=== PATIENT | male | born 1975 ===

== ENCOUNTER 2017-03-23 22:01 | Inpatient (IN) ==
[2017-03-23] MEDS ORDERED: ONDANSETRON 4 MG/2 ML VIAL IV STA (22:25)
[2017-03-23] MEDS ORDERED: PANTOPRAZOLE 40 MG VIAL IV STA (22:25)
[2017-03-23] MEDS ORDERED: SODIUM CHLORIDE 0.9% 500 ML IV STA (22:25)
[2017-03-23] MEDS ORDERED: PANTOPRAZOLE 40 MG VIAL IV ONE (22:43)
[2017-03-23] MEDS ORDERED: ONDANSETRON 4 MG/2 ML VIAL ONE (22:43)
--- NOTE | 2017-03-23 22:48 | Emergency Department Note ---
Michaela Torres Emily, am scribing for, and in the presence of, Eriberto Simon MD 22: 34. Aurora Torres Charles R, MD, personally performed the services described in this documentation, ascribed by Malathi Jennings in my presence, and it is both accurate and complete . Arrival - Arrival Chief Complaint: Abdominal / Flank Pain Stated Complaint: Abdominal pain ED Nursing Triage Note: Patient is transfer from [facility] ER for a mechanical ileus. Patient has a hx of cholecystectomy and appendectomy. Patient states that he has a biliary tube. Patient received GI cocktail x1, 4mg zofran and 6mg morphine for pain. Patient reports slight abd pain upon triage. Mode of Arrival: Stretcher Limitations: No Limitations Source: Patient - History of Present Illness HPI Narrative: Pt is a 42 y/o male who was transferred from [facility] ER for further evaluation of chronic abdomen pain, in which he has a mechanical ileus. Pt has a hx of cholecystectomy and appendectomy. Pt has a biliary tube and received GI cocktail x1, 4mg zofran and 6mg morphine for pain at [place]. Pt reports slight , non radiating abdomen pain but is staying still because movement makes pain worse. Pt denies fevers, hematuria, or dysuria. He notes that urine output is nml but chronic constipation. PMHx of cryptogenic cirrhosis. Onset (ago): day(s) Consistency: constant Severity: moderate Severity scale (1-10): 5 Quality: aching Allergies/Adverse Reactions: Allergies Allergy/AdvReac Type Severity Reaction Status Date / Time No Known Allergies Allergy Verified 03/29/16 21:54 Home Medications: Home Medications Medication Instructions Recorded Confirmed Type Eletriptan HBr [Relpax] 40 mg PO DAILY 08/10/16 08/31/16 History ALPRAZolam [Xanax] 0.5 mg PO BID PRN #0 tablet 08/17/16 08/31/16 Rx Citalopram [CeleXA] 20 mg PO DAILY tablet 08/17/16 08/31/16 Rx Topiramate [Topamax] 50 mg PO BEDTIME tablet 08/17/16 08/31/16 Rx Oxycodone HCl 5 mg PO TID 08/31/16 08/31/16 History Levofloxacin Tab [Levaquin Tab] 500 mg PO DAILY #14 tablet 09/05/16 Rx Ciprofloxacin Tab [Cipro Tab] 500 mg PO Q12HR 10 Days 03/12/17 Rx Dicyclomine Cap/Tab [Bentyl 20 mg PO QID PRN #20 tablet 03/12/17 Rx Cap/Tab] Ondansetron [Ondansetron Odt] 8 mg PO Q4H PRN #10 tab.rapdis 03/12/17 Rx metroNIDAZOLE TAB [Flagyl Tab] 250 mg PO TID 10 Days 03/12/17 Rx Review of System - Review of System 12 point system: reviewed and no additional remarkable complaints except as stated - Review of System Constitutional: Absent: chills, fever Respiratory: Absent: respiratory distress Cardiovascular: Absent: chest pain Gastrointestinal: Present: abdominal pain (non radiating; worse with movement), constipation. Absent: nausea, vomiting, diarrhea Genitourinary male: Absent: dysuria, hematuria Musculoskeletal: Absent: arm pain, back pain, leg pain, neck pain Skin: Absent: rash Neurological: Absent: headache Psychiatric: Absent: anxiety Medical,Surgical,& Family Hx - Medical History Psychological: History of: Anxiety Disorders Neurology: History of: Migraine (sees DR [facility] [place]) Endocrine: No history of: Diabetes Mellitus (NIDDM) Respiratory: No history of: Obstructive Sleep Apnea Genitourinary: No history of: Kidney Stones Gastrointestinal: History of: GERD, Hemorrhoids (See/treated by Dr Valdovinos in January 2016 for rectal bleeding/hemorrhoids), Liver Problems (cryptogenic cirrhosis) Musculoskeletal: Comment Only: Musculoskeletal Problems (joint pain) - Surgical History Cardiac Surgeries: Patient Denies: Cardiac Catheterization Thoracic Surgeries: Patient denies;: Organ Transplant, Lobectomy Neurologic Surgeries: Patient denies: Neurologic Surgery HEENT Surgeries: Patient denies: Tonsilectomy & Adenoidectomy Abdominal Surgeries: Surgical HX of: Abdominal Surgery, Appendectomy, Cholecystectomy (with biliary stent placement), Colonoscopy, EGD Reproductive Surgeries: Patient denies;: Genitourinary Surgery Orthopedic Surgeries: Surgical HX of;: Orthopedic Surgery (knee scope done on each knee.) - Family History Family History: Reports;: Family Cancer (mom- breast CA), Family Diabetes ( BROTHER), Family Heart Disease, Family Hypertension (BROTHER), Family Stroke Denies;: Family Psychiatric Problems - Social History Smoking Status: Current some day smoker Frequency of Alcohol Use: Occasionally Type of Drug Use: None Functional capacity: independent ambulation Exam Vital Signs: Vital Signs Temperature 98.7 F 03/23/17 22:01 Pulse Rate 92 H 03/23/17 22:01 Respiratory Rate 20 03/23/17 22:01 Blood Pressure 122/54 03/23/17 22:01 O2 Sat by Pulse Oximetry 97 03/23/17 22:01 - General General appearance: alert, in no apparent distress, obese - Head Head exam: Present: atraumatic, normocephalic - Eye Eye exam: Present: PERRL, EOMI - ENT ENT exam: Present: mucous membranes moist. Absent: mucous membranes dry - Neck Neck exam: Present: full ROM. Absent: tenderness - Chest Chest inspection: Present: symmetric chest wall rise. Absent: tenderness - Respiratory Respiratory exam: Present: normal lung sounds bilaterally. Absent: respiratory distress - Cardiovascular Cardiovascular exam: Present: regular rate, normal rhythm, normal heart sounds - Abdominal Exam Abdominal exam: Present: soft, tenderness (generalized and suprapubic), normal bowel sounds. Absent: distention, guarding, rebound - Extremities Exam Extremities exam: Present: full ROM, pedal edema (+1). Absent: tenderness - Neurological Exam Neurological exam: Present: alert, oriented X3, CN II-XII intact. Absent: motor sensory deficit - Psychiatric Psychiatric exam: Present: normal affect, normal mood - Skin Skin exam: Present: warm, dry Course - Consultations Consultation #1: Hospitalist will admit patient Time: 22:46 Results - Labs Lab Results: I have reviewed the patients labs Labs: All results including labs and x-rays were reviewed from previous facility Disposition Clinical Impression: Gastroenteritis, Gastroparesis, Ileus, History of percutaneous stent Case discussed with: patient Disposition: Still a Patient Condition: Stable Time of Disposition: 22:47
[2017-03-23 23:15] LABS: Basophils % 0.2 % (0.0-0.8); Eosinophils % 0.2 % (0.00-10.9); Hematocrit 40.5 VOL% (42.0-52.0); Hemoglobin 13.8 GM/DL (14.0-18.0); Immature Granulocytes % 0.8 %; Immature Granulocytes Absolute 0.13 #; Lymphocytes # 1.5 10*3/uL (1.4-4.0); Lymphocytes % 9.2 % (21.2-54.2); Mean Corpuscular HGB Conc 34.1 GM/DL (32-36); Mean Corpuscular Hemoglobin 30 PG (27-34); Mean Corpuscular Volume 88.8 FL (87-102); Mean Platelet Volume 11.9 FL (9.6-12.0); Monocytes # 1.9 10*3/uL (0.11-0.8); Monocytes % 11.5 % (1.7-12.7); Neutrophils # 13.1 10*3/uL (1.4-7.4); Neutrophils % 78.1 % (38.7-73.9); Platelet Count 155 T/CUMM (130-400); Red Blood Count 4.56 MC/CUMM (3.8-5.5); Red Cell Distribution Width 13.6 % (9.3-17.3); White Blood Count 16.8 T/CUMM (4-12)
[2017-03-23 23:43] LABS: Alanine Aminotransferase 48 U/L (16-61); Albumin 3.3 G/DL (3.4-5.0); Alkaline Phosphatase 177 U/L (45-117); Amylase 18 U/L (25-115); Aspartate Amino Transferase 23 U/L (0-37); Blood Urea Nitrogen 15 MG/DL (7-18); Calcium 8.5 MG/DL (8.5-10.1); Glucose 90 MG/DL (74-106); Magnesium 2.4 MG/DL (1.8-2.4); Potassium 3.7 MMOL/L (3.5-5.1); Sodium 136 MMOL/L (136-145); Total Protein 7.3 G/DL (6.4-8.3); Troponin I Only < 0.015 NG/ML (0.00-0.045)
--- NOTE | 2017-03-24 00:10 | Hospitalist History & Physical ---
Assessment and Plan (1) History of biliary stent insertion Status: Acute Current Visit: Yes (2) Abdominal pain Status: Acute Current Visit: No Qualifiers: Abdominal location: epigastric Qualified Code(s): R10.13 - Epigastric pain (3) Leukocytosis Status: Acute Current Visit: No (4) Nausea & vomiting Status: Acute Current Visit: No (5) history of autoimmune hepatitis Status: Acute Current Visit: No (6) Gastroenteritis Status: Acute Current Visit: Yes (7) Ileus Status: Acute Assessment and plan: Patient will be admitted to our service. Will follow up on repeat labs tomorrow. We are going to put him on IV Cipro and Flagyl. He will have bowel rest. We will treat his pain with morphine. Provide him with hydration through the night. Recheck a KUB in the morning. See if this ileus resolves. It was not present 2 days ago when he had a CT scan but was there on a KUB done at the [facility] Current Visit: Yes History of Present Illness Chief complaint: Abdominal pain History of present illness: Mr. Plasencia is a 42 year old male with past medical history of cryptogenic cirrhosis who presents to our ER as a transfer from [facility]. Patient's KUB today identified him as having an ileus. Patient reports that his pain started approximately 2 days ago. He started with a burning sensation in his epigastrium. He went to the [facility] and he had a CT scan and they stop some of his medications. He tried to just bear with it at home took an enema with some improvement in symptoms the pain seem like it increased. He returned back to the emergency room and he had a KUB that showed a ileus involving both the small and large bowel. I was consulted to admit the patient through the emergency room. Patient does have a biliary tube that he has had for the past several months. Home Medications Medication Instructions Recorded Confirmed Type Eletriptan HBr [Relpax] 40 mg PO DAILY 08/10/16 08/31/16 History ALPRAZolam [Xanax] 0.5 mg PO BID PRN #0 tablet 08/17/16 08/31/16 Rx Citalopram [CeleXA] 20 mg PO DAILY tablet 08/17/16 08/31/16 Rx Topiramate [Topamax] 50 mg PO BEDTIME tablet 08/17/16 08/31/16 Rx Oxycodone HCl 5 mg PO TID 08/31/16 08/31/16 History Levofloxacin Tab [Levaquin Tab] 500 mg PO DAILY #14 tablet 09/05/16 Rx Ciprofloxacin Tab [Cipro Tab] 500 mg PO Q12HR 10 Days 03/12/17 Rx Dicyclomine Cap/Tab [Bentyl 20 mg PO QID PRN #20 tablet 03/12/17 Rx Cap/Tab] Ondansetron [Ondansetron Odt] 8 mg PO Q4H PRN #10 tab.rapdis 03/12/17 Rx metroNIDAZOLE TAB [Flagyl Tab] 250 mg PO TID 10 Days 03/12/17 Rx Allergies Allergy/AdvReac Type Severity Reaction Status Date / Time No Known Allergies Allergy Verified 03/29/16 21:54 Medical,Surgical,& Family Hx - Medical History Psychological: History of: Anxiety Disorders Neurology: History of: Migraine (sees DR [facility] [place]) Endocrine: No history of: Diabetes Mellitus (NIDDM) Respiratory: No history of: Obstructive Sleep Apnea Genitourinary: No history of: Kidney Stones Gastrointestinal: History of: GERD, Hemorrhoids (See/treated by Dr Valdovinos in January 2016 for rectal bleeding/hemorrhoids), Liver Problems (cryptogenic cirrhosis) Musculoskeletal: Comment Only: Musculoskeletal Problems (joint pain) - Surgical History Cardiac Surgeries: Patient Denies: Cardiac Catheterization Thoracic Surgeries: Patient denies;: Organ Transplant, Lobectomy Neurologic Surgeries: Patient denies: Neurologic Surgery HEENT Surgeries: Patient denies: Tonsilectomy & Adenoidectomy Abdominal Surgeries: Surgical HX of: Abdominal Surgery, Appendectomy, Cholecystectomy (with biliary stent placement), Colonoscopy, EGD Reproductive Surgeries: Patient denies;: Genitourinary Surgery Orthopedic Surgeries: Surgical HX of;: Orthopedic Surgery (knee scope done on each knee.) - Family History Family History: Reports;: Family Cancer (mom- breast CA), Family Diabetes ( BROTHER), Family Heart Disease, Family Hypertension (BROTHER), Family Stroke Denies;: Family Psychiatric Problems - Social History Smoking Status: Current some day smoker Frequency of Alcohol Use: Occasionally Type of Drug Use: None 12 point system: reviewed and no additional remarkable complaints except as stated Exam - Constitutional Vitals: Period Temp Pulse Resp BP Sys/Sims Pulse Ox Last 24 Hr 98.7 F-98.7 F 92-92 20-20 122-122/54-54 97 - General General appearance: alert, in no apparent distress, obese - Head Head exam: Present: atraumatic, normocephalic - Eye Eye exam: Present: PERRL, EOMI - ENT ENT exam: Present: mucous membranes moist. Absent: mucous membranes dry - Neck Neck exam: Present: full ROM. Absent: tenderness - Chest Chest inspection: Present: symmetric chest wall rise. Absent: tenderness - Respiratory Respiratory exam: Present: normal lung sounds bilaterally. - Cardiovascular Cardiovascular exam: Present: regular rate, normal rhythm, normal heart sounds - Abdominal Exam Abdominal exam: Present: soft, tenderness (generalized and suprapubic), normal bowel sounds no rebound was noted - Extremities Exam Extremities exam: Present: full ROM, pedal edema (+1). Absent: tenderness - Neurological Exam Neurological exam: Present: alert, oriented X3, CN II-XII intact. Absent: motor sensory deficit - Psychiatric Psychiatric exam: Present: normal affect, normal mood - Skin Skin exam: Present: warm, dry Results - Labs CBC & BMP: 03/23/17 22:56 03/23/17 22:56
[2017-03-24 00:27] LABS: Apearance,Urine Slightly Hazy (Clear); Bilirubin,Urine Negative (Negative); Blood, Urine Negative (Negative); Glucose,Urine (UA) Negative (Negative); Ketones,Urine 5 mg/dL (Negative); Mucus,Urine Occasional /LPF (Occasional); Nitrite,Urine Negative (Negative); Protein,Urine 30 MG/DL; RBC,Urine 1 /HPF (0-4); Urine Color Amber (Yellow); Urine Specific Gravity 1.019 (1.001-1.035); Urine Urobilinogen < 2.0 EU/DL (0.2-1.0); WBC,Urine <1 /HPF (0-6)
[2017-03-24] MEDS ORDERED: GLUCAGON 1 MG VIAL IM PRN (00:33)
[2017-03-24] MEDS ORDERED: DEXTROSE 50% 25 GM/50 ML VIAL IV PRN (00:33)
[2017-03-24] MEDS: SODIUM CHLORIDE 0.9% 1,000 ML IV SCH ×4 (00:48→21:45)
[2017-03-24] MEDS: MORPHINE 2 MG/1 ML SYRINGE IV PRN ×3 (01:03→11:19)
[2017-03-24] MEDS: CIPROFLOXACIN INJ 400 MG in PREMIX 1 EACH IV SCH ×2 (01:05→13:23)
[2017-03-24] MEDS ORDERED: PNEUMOCOCCAL VACCINE (23 VALENT) 0.5 ML VIAL IM ONE (01:27)
[2017-03-24] MEDS: metroNIDAZOLE INJ 500 MG in PREMIX 1 EACH IV SCH ×3 (02:26→18:27)
[2017-03-24 06:17] LABS: Basophils % 0.2 % (0.0-0.8); Eosinophils # 0.1 10*3/uL (0.0-0.87); Eosinophils % 0.5 % (0.00-10.9); Hemoglobin 13.3 GM/DL (14.0-18.0); Immature Granulocytes % 0.6 %; Immature Granulocytes Absolute 0.08 #; Lymphocytes # 1.5 10*3/uL (1.4-4.0); Lymphocytes % 10.4 % (21.2-54.2); Mean Corpuscular HGB Conc 33.3 GM/DL (32-36); Mean Corpuscular Hemoglobin 30 PG (27-34); Mean Corpuscular Volume 89.7 FL (87-102); Mean Platelet Volume 11.9 FL (9.6-12.0); Monocytes # 1.7 10*3/uL (0.11-0.8); Monocytes % 11.7 % (1.7-12.7); Neutrophils # 11.1 10*3/uL (1.4-7.4); Neutrophils % 76.6 % (38.7-73.9); Platelet Count 181 T/CUMM (130-400); Red Blood Count 4.46 MC/CUMM (3.8-5.5); Red Cell Distribution Width 13.4 % (9.3-17.3); White Blood Count 14.5 T/CUMM (4-12)
[2017-03-24 07:00] LABS: Albumin 3.1 G/DL (3.4-5.0); Bilirubin,Total 1.4 MG/DL (0.2-1.0); Calcium 8.4 MG/DL (8.5-10.1); Magnesium 2.5 MG/DL (1.8-2.4); Osmolality,Calculated 273.8 MOS/KG (273-304); Potassium 3.7 MMOL/L (3.5-5.1); Risk Ratio 4.31; Thyroid Stimulating Hormone 3.7 uIU/ml (0.358-3.74); Total Protein 7.3 G/DL (6.4-8.3); VLDL CHOLESTEROL 30.2 MG/DL
--- NOTE | 2017-03-24 08:53 | EKG Report ---
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
[2017-03-24] MEDS: INSULIN REGULAR 100 UNIT/ML SUBCUT SCH ×4 (09:33→21:43)
[2017-03-24] MEDS: PANTOPRAZOLE 40 MG VIAL IV SCH (09:49)
[2017-03-24] MEDS: HYDROmorphone 2 MG/1 ML VIAL IV PRN ×4 (13:09→21:45)
[2017-03-24] MEDS: ACETAMINOPHEN 325 MG TABLET PO PRN (17:12)
--- NOTE | 2017-03-24 17:32 | XRay Report ---
History: Ileus Date: 03/24/2017 Study: KUB Comparison exam: 03/23/2017 A right upper abdominal internal/external biliary drain is positioned over the expected location of the common bile duct, with pigtail formation over the expected region of the duodenum. There is no cindy bowel obstruction. There is some mild contrast scattered in the normal caliber colon. There is an occasional air filled loop of normal caliber small bowel. There is reduced bowel distention compared to the previous study. Osseous structures are unremarkable. Impression: No evidence of ileus or cindy bowel obstruction. Internal/external biliary drain over the right upper quadrant as before. No definite acute process or interval worsening PROCEDURE INTERPRETED AT [facility] DEPARTMENT OF RADIOLOGY Final Report Signed by: Dr. Luz Green
--- NOTE | 2017-03-24 19:15 | XRay Report ---
History: Shortness of breath Date: 03/24/2017 Study: Chest x-ray PA lateral Comparison exam: March 12, 2017 The cardiac silhouette is upper normal in size. The mediastinal contours are stable. The pulmonary vasculature is not engorged. There is no pleural effusion. There is mild platelike subsegmental atelectasis in the lung bases. There is no cindy pneumonia. An external biliary drain overlies the right upper abdomen. Osseous structures are similar. Impression: Mild platelike subsegmental atelectasis in the lung bases, increased in the right lung base since the previous study. Right upper quadrant biliary drain as before. Otherwise unchanged PROCEDURE INTERPRETED AT [facility] DEPARTMENT OF RADIOLOGY Final Report Signed by: Dr. Luz Green
[2017-03-25] MEDS: CIPROFLOXACIN INJ 400 MG in PREMIX 1 EACH IV SCH ×2 (00:21→12:33)
[2017-03-25] MEDS: metroNIDAZOLE INJ 500 MG in PREMIX 1 EACH IV SCH ×3 (01:34→18:43)
[2017-03-25] MEDS: SODIUM CHLORIDE 0.9% 1,000 ML IV SCH ×5 (01:40→23:55)
[2017-03-25] MEDS: HYDROmorphone 2 MG/1 ML VIAL IV PRN ×2 (03:16→12:32)
[2017-03-25 06:23] LABS: Basophils % 0.2 % (0.0-0.8); Eosinophils # 0.1 10*3/uL (0.0-0.87); Hematocrit 36.6 VOL% (42.0-52.0); Hemoglobin 11.9 GM/DL (14.0-18.0); Immature Granulocytes % 0.5 %; Immature Granulocytes Absolute 0.05 #; Lymphocytes # 1.5 10*3/uL (1.4-4.0); Lymphocytes % 15.4 % (21.2-54.2); Mean Corpuscular HGB Conc 32.5 GM/DL (32-36); Mean Corpuscular Hemoglobin 30 PG (27-34); Mean Platelet Volume 12.1 FL (9.6-12.0); Monocytes % 10.6 % (1.7-12.7); Neutrophils % 72.3 % (38.7-73.9); Platelet Count 180 T/CUMM (130-400); Red Blood Count 4.02 MC/CUMM (3.8-5.5); Red Cell Distribution Width 13.5 % (9.3-17.3); White Blood Count 9.7 T/CUMM (4-12)
[2017-03-25 06:49] LABS: Calcium 8.7 MG/DL (8.5-10.1); Magnesium 2.7 MG/DL (1.8-2.4); Osmolality,Calculated 279.4 MOS/KG (273-304); Potassium 4.1 MMOL/L (3.5-5.1)
[2017-03-25 06:55] LABS: Albumin 2.9 G/DL (3.4-5.0); Bilirubin,Direct 0.5 MG/DL (0.0-0.20); Bilirubin,Indirect 0.7 MG/DL (0.0-1.0); Bilirubin,Total 1.2 MG/DL (0.2-1.0); Total Protein 6.8 G/DL (6.4-8.3)
--- NOTE | 2017-03-25 08:46 | XRay Report ---
History: Ileus Date: 03/25/2017 Study: KUB Comparison exam: 03/24/2017 The bowel gas pattern is nonobstructive. There is no gross ileus. There is some mild residual contrast in the normal caliber colon, slightly reduced from the previous study. External biliary drain overlies the right upper abdomen as before, stable in position. The osseous structures are stable. Impression: Stable exam without change from the previous study PROCEDURE INTERPRETED AT [facility] DEPARTMENT OF RADIOLOGY Final Report Signed by: Dr. Luz Green
[2017-03-25] MEDS: INSULIN REGULAR 100 UNIT/ML SUBCUT SCH ×4 (09:49→20:45)
[2017-03-25] MEDS: PANTOPRAZOLE 40 MG VIAL IV SCH (10:15)
--- NOTE | 2017-03-25 11:25 | Hospitalist Progress Note ---
Assessment and Plan (1) Abdominal pain Status: Acute Current Visit: No Qualifiers: Abdominal location: epigastric Qualified Code(s): R10.13 - Epigastric pain (2) Leukocytosis Status: Acute Current Visit: No (3) Nausea & vomiting Status: Acute Current Visit: No (4) Gastroenteritis Status: Acute Current Visit: Yes (5) Ileus Status: Acute Assessment and plan: Ileus is much improved on KUB Tolerating diet Will continue abx, if remains afebrile possible discharge tomorrow. Current Visit: Yes (6) History of biliary stent insertion Status: Acute Current Visit: Yes Hospitalist: Subjective Interval history: Patient was febrile up to 102 yesterday. Afebrile since. Leukocytosis is resolved today. Pain is better today. Tolerating breakfast. Exam - Constitutional Vitals: Period Temp Pulse Resp BP Sys/Sims Pulse Ox Last 24 Hr 97.4 F-102.0 F 73-96 18-20 105-118/52-93 95-100 General appearance: over weight - Head Head exam: Present: normocephalic, atraumatic - Eye Eye exam: Present: EOMI Pupils: Present: BHAVANA - ENT ENT exam: Present: normal exam - Neck Neck exam: Present: normal inspection - Respiratory Respiratory exam: Present: clear to auscultation bilaterally. Absent: rhonchi, wheezes - Cardiovascular Cardiovascular exam: Present: regular rate and rhythm - GI/Abdominal GI/Abdominal exam: Present: normal bowel sounds, soft. Absent: tenderness, rebound - Extremities Exam Extremities exam: Present: normal inspection - Back Exam Back exam: Present: normal inspection - Neurological Exam Neurological exam: Present: alert, oriented X3 - Psychiatric Psychiatric exam: Present: normal affect, normal mood - Skin Skin exam: Present: warm, intact Results - Labs CBC & BMP: 03/25/17 05:44 03/25/17 05:44
[2017-03-25] MEDS: ACETAMINOPHEN 325 MG TABLET PO PRN (23:00)
[2017-03-26] MEDS: CIPROFLOXACIN INJ 400 MG in PREMIX 1 EACH IV SCH ×2 (01:08→13:06)
[2017-03-26] MEDS: metroNIDAZOLE INJ 500 MG in PREMIX 1 EACH IV SCH ×2 (02:05→10:43)
[2017-03-26 04:58] LABS: Basophils % 0.4 % (0.0-0.8); Eosinophils # 0.1 10*3/uL (0.0-0.87); Eosinophils % 2.4 % (0.00-10.9); Hematocrit 35.7 VOL% (42.0-52.0); Hemoglobin 11.9 GM/DL (14.0-18.0); Immature Granulocytes % 0.4 %; Immature Granulocytes Absolute 0.02 #; Lymphocytes # 1.6 10*3/uL (1.4-4.0); Lymphocytes % 35.5 % (21.2-54.2); Mean Corpuscular HGB Conc 33.3 GM/DL (32-36); Mean Corpuscular Hemoglobin 30 PG (27-34); Mean Corpuscular Volume 89.9 FL (87-102); Mean Platelet Volume 11.9 FL (9.6-12.0); Monocytes # 0.5 10*3/uL (0.11-0.8); Monocytes % 9.9 % (1.7-12.7); Neutrophils # 2.3 10*3/uL (1.4-7.4); Neutrophils % 51.4 % (38.7-73.9); Platelet Count 186 T/CUMM (130-400); Red Blood Count 3.97 MC/CUMM (3.8-5.5); Red Cell Distribution Width 13.2 % (9.3-17.3); White Blood Count 4.6 T/CUMM (4-12)
[2017-03-26 05:24] LABS: Calcium 8.1 MG/DL (8.5-10.1); Magnesium 2.5 MG/DL (1.8-2.4); Osmolality,Calculated 284.8 MOS/KG (273-304)
[2017-03-26] MEDS: INSULIN REGULAR 100 UNIT/ML SUBCUT SCH ×2 (07:50→12:02)
[2017-03-26] MEDS: PANTOPRAZOLE 40 MG VIAL IV SCH (09:03)
--- NOTE | 2017-03-26 09:36 | Discharge Summary ---
<Marisa Nguyenda - Last Filed: 03/26/17 09:49> Hospital Course - Hospital Course Hospital Course: This is very unfortunate 42 year old male that presented to the ED at [facility] as a lateral transfer from the [facility]. The patient has a very extensive medical history significant for cryptogenic cirrhosis, migraine headaches, hemorrhoids, and GERD. The patient has a surgical history significant for appendectomy, cholecystectomy with biliary stent placement, colonoscopy ,arthroscopic bilateral knee surgery, and EGD. The patient reported to the [facility] on the day of presentation verbalizing a compliant of epigastric pain. He was evaluated, his medications were adjusted, and he was discharged home. He returned home and administered an enema in hopes of obtaining some degree of relief,however the symptoms persisted which prompted him to return. At that time a KUB was performed which was significant for the presence of ileus involving both the small and large bowel. He was subsequently transferred to [facility] for further evaluation. The patient was admitted. Empiric antibiotics were initiated; bowel rest was promoted, and fluid hydration was administered. His condition gradually improved. KUB was repeated on 03/25; which was absent for the presence of obstruction or ileus. The patient had a bowel movement. He tolerating a diet. He has not experienced any significant overnight events. Today. we feel that he is indeed appropriate for discharge with follow-up with his primary care physician as indicated. He has reached maximal benefit of inpatient stay. - Time spent with patient Time with patient DS: Greater than 30 minutes Specialty Discharge - Follow Up or Referrals Discharge Plan - Discharge Medications New HYDROcodone/ACETAMIN 5-325 [[place] 5-325] 1 tablet PO Q4H #30 tablet Continue Topiramate [Trokendi XR] 100 mg PO BEDTIME - Follow Up or Referral - Forms/Instructions Instructions: Ileus (DC), Gastroparesis (DC) Exam - Constitutional Vitals: Period Temp Pulse Resp BP Sys/Sims Pulse Ox Last 24 Hr 97.1 F-97.7 F 62-90 17-21 106-137/58-76 95-100 Discharge Results Procedures and tests throughout hospitalization: Pending Orders 03/23/17 23:04 Blood Culture Stat Labs on day of discharge: Labs from last 24 hours 03/26/17 03/26/17 03/26/17 07:04 04:23 04:23 WBC 4.6 D RBC 3.97 Hgb 11.9 L Hct 35.7 L MCV 89.9 MCH 30 MCHC 33.3 RDW 13.2 Plt Count 186 MPV 11.9 Neut % (Auto) 51.4 Lymph % (Auto) 35.5 Taliaferro % (Auto) 9.9 Eos % (Auto) 2.4 Baso % (Auto) 0.4 Neut # (Auto) 2.3 Lymph # (Auto) 1.6 [place]ferro # (Auto) 0.5 Eos # (Auto) 0.1 Baso # (Auto) 0.0 Immature Gran % 0.4 Nucleated RBC % 0.0 Immature Gran # 0.02 Nucleated RBCs # 0.00 Sodium 144 Potassium 4.0 Chloride 113 H Carbon Dioxide 24 Anion Gap 11.0 BUN 11 Creatinine 0.80 GFR Calculation 154 BUN/Creatinine Ratio 13.00 Glucose 96 POC Glucose 102 Calculated Osmolality 284.8 Calcium 8.1 L Magnesium 2.5 H 03/25/17 03/25/17 03/25/17 20:45 16:51 11:42 WBC RBC Hgb Hct MCV MCH MCHC RDW Plt Count MPV Neut % (Auto) Lymph % (Auto) Taliaferro % (Auto) Eos % (Auto) Baso % (Auto) Neut # (Auto) Lymph # (Auto) Tal[place]ferro # (Auto) Eos # (Auto) Baso # (Auto) Immature Gran % Nucleated RBC % Immature Gran # Nucleated RBCs # Sodium Potassium Chloride Carbon Dioxide Anion Gap BUN Creatinine GFR Calculation BUN/Creatinine Ratio Glucose POC Glucose 112 H 83 89 Calculated Osmolality Calcium Magnesium Preliminary micro results at discharge 03/23/17 23:04 Blood Culture - Preliminary Blood No growth at 1 day 03/23/17 22:56 Blood Culture - Preliminary Blood No growth at 1 day DS: Provider Date of admission: 03/23/17 23:17 Primary care physician: Merritt Pinon MD Attending physician on admission: Buddy Figueroa MD Consults: 03/24/17 00:33 Consult to Case Mgmt/Social Srvs [CONS] Routine Reason for Case Mgmt/Social Srvs: Rehab Discharging clinician: Cielo Nguyen CNP <Clarence Freeman - Last Filed: 03/26/17 10:27> Hospital Course - Time spent with patient Time with patient DS: Less than 30 minutes Diagnosis - Discharge Diagnosis (1) Abdominal pain Status: Resolved (2) Leukocytosis Status: Resolved (3) Nausea & vomiting Status: Resolved (4) Gastroenteritis Status: Resolved (5) Ileus Status: Resolved (6) History of biliary stent insertion Status: Chronic Discharge Plan - Discharge Data Condition at Discharge: Stable Discharge Diet: high fiber diet, low fat, low cholesterol Activity: increase activity as tolerated Hygiene: no restrictions Weight Bearing at Discharge: weight bear as tolerated Driving: no restrictions Contact your physician if you experience:: fever over 101, pain uncontrolled by pain medications Exam - Constitutional General appearance: over weight - Head Head exam: Present: normocephalic, atraumatic - Eye Eye exam: Present: EOMI Pupils: Present: BHAVANA - ENT ENT exam: Present: normal exam - Neck Neck exam: Present: normal inspection - Respiratory Respiratory exam: Present: clear to auscultation bilaterally. Absent: wheezes - Cardiovascular Cardiovascular exam: Present: regular rate and rhythm - GI/Abdominal GI/Abdominal exam: Present: normal bowel sounds, soft. Absent: tenderness - Extremities Exam Extremities exam: Present: normal inspection - Back Exam Back exam: Present: normal inspection - Neurological Exam Neurological exam: Present: alert, oriented X3 - Psychiatric Psychiatric exam: Present: normal affect, normal mood - Skin Skin exam: Present: warm, intact
[2017-03-26] MEDS: SODIUM CHLORIDE 0.9% 1,000 ML IV SCH (11:14)
[2017-03-26 12:35] VITALS: BP 146/56
== END 2017-03-26 14:50 | disposition home or self-care (01) | DRG 389 ==
LOC: EDBD → EDUNIT# → N.ED 22:01 → SUATTDRO 23:17 → N.EDINP 23:17 → N.3E 03-24 00:21
PROVIDERS: ADMIT Internal Medicine; ATTEND Internal Medicine